=== PATIENT | female | born 1990 | race Caucasian/White ===

== ENCOUNTER → 2017-01-05 | Outpatient (CLI) | payer OTHER ==
--- NOTE | 2017-01-05 09:05 | US ---
EXAMINATION TYPE: US thyroid st tissue head/neck DATE OF EXAM: 01/05/2017 COMPARISON: US August 29, 2012 CLINICAL HISTORY: E04.1 Thyroid Nodule. F/U previous GLAND SIZE: Right Lobe: 5.2 x 1.9 x 2.1 cm Overall Parenchyma: heterogenous Left Lobe: 2.9 x 0.9 x 1.1 cm Overall Parenchyma: heterogeneous Isthmus Thickness: 0.3 cm NODULES RIGHT: # of nodules measured on right: 1 1. 1.0 X 0.7 x 0.8 cm hyperechoic solid nodule at the lower pole with well-defined margins; This n odule is wider than tall and shows intranodular vascularity. Prior size: 1.2 x 1.2 x 1.0 cm LEFT: # of nodules measured on left: 0 ISTHMUS: # of nodules measured in the isthmus: 0 Bilateral neck scanned, no evidence of lymphadenopathy. IMPRESSION: Heterogeneous enlarged right thyroid with stable 1.0 cm hyperechoic solid nodule. No new greater than 1 cm solid or cystic nodules are identified bilaterally.
== END | disposition home or self-care (01) ==
LOC: RADUSWWP 08:19
PROVIDERS: ATTEND Internal Medicine Endocrinology, Diabetes & Metabolism
DX: E04.1 Nontoxic single thyroid nodule (principal)
CPT/HCPCS: 76536